=== PATIENT | female | born 1975 | race Caucasian/White ===

== ENCOUNTER 2016-10-14 10:00 | Inpatient (IN) | payer MEDICARE, MEDICAID ==
[~2016-10-14 10:00] MED LIST: ADVAIR 2501 DISK W/D IH; ALBUTEROL SULF8.5 GM IH; ALTACE5 MG PO; CLINDAMYCIN HC300 MG PO; FLEXERIL10 MG PO; FLONASE ALLERG9.9 ML; GLUCOPHAGE1000 M1 PO; IBUPROFEN800 M1 PO; JANUMET 50-1,1 UDTAB PO; LANTUS100 U/ML SC; LORTAB 7.5/5001 EA PO; LYRICA150 MG PO; LYRICA50 MG/CAP PO; MOBIC7.5 M1 PO; NAPROSYN375 MG PO; PHENERGAN12.5 M1 RC; PROMETHAZINE25 MG PO; TYLENOL325 M2 PO; ULTRAM50 MG PO
[2016-10-15 05:56] LABS: EOS % 0.1 % (0-7); HGB-HEMOGLOBIN 10.9 gm/dl (12.0-15.5); IMMATURE GRANULOCYTES ABSOLUTE 0.02 tho/cmm (0-0.03); IMMATURE GRANULOCYTES PERCENT 0.2 % (0-0.3); LYMPH % 7.5 % (20-45); LYMPH ABSOLUTE COUNT 0.9 tho/cmm (0.8-4.5); MCH (MEAN CORPUSCULAR HGB) 30.3 pg (28.0-32.0); MCHC MEAN CORPUSCULAR HGB CONC 34.1 % (32.0-36.0); MCV (MEAN CELL VOLUME) 88.9 fl (82.0-96.0); MEAN PLATELET VOLUME 9.5 cmc (9.4-12.4); MONO % 3.8 % (0-12); MONOCYTE ABSOLUTE COUNT 0.5 tho/cmm (0.0-1.2); NEUTROPHILS % 88.4 % (40-80); PLATELET COUNT 267 tho/cmm (150-450); RED CELL DISTRIBUTION WIDTH 11.7 % (12.4-16.4); WHITE BLOOD COUNT 12.4 tho/cmm (4.0-10.0)
[2016-10-15 06:09] LABS: ANION GAP 12 mmol/L (0-20); BLOOD UREA NITROGEN 7 mg/dl (6-24); CALCIUM 8.6 mg/dl (8.5-10.5); CARBON DIOXIDE-VENOUS 26 mmol/L (22-32); CHLORIDE 107 mmol/l (96-110); CREATININE 0.56 mg/dl (0.50-1.10); GLUCOSE 224 mg/dL (70-110); POTASSIUM 4.1 mmol/L (3.7-5.1); SODIUM 141 mmol/L (135-145); eGFR VALUE FOR BLACK >90 mL/Min
[2016-10-17] MEDS ORDERED: HYDROCODON-ACE1 EA16 PO (11:13)
[2016-10-17] MEDS ORDERED: CYCLOBENZAPRINE5 M1 PO (11:15)
[2016-10-17] MEDS ORDERED: CYCLOBENZAPRINE10 M1 PO (11:20)
== END 2016-10-17 12:35 | DRG 460 ==
LOC: SHSB 10:00 → ORE 12:03 → PACU 14:39 → 5EC 15:45
PROVIDERS: Family Medicine; ADMIT Orthopaedic Surgery Orthopaedic Surgery of the Spine
PROC: 0SG00A0 Fusion of Lumbar Vertebral Joint with Interbody Fusion Device, Anterior Approach, Anterior Column, Open Approach (ICD-10-PCS; principal; 2016-10-14)
DX: M51.16 Intervertebral disc disorders with radiculopathy, lumbar region (principal); E11.9 Type 2 diabetes mellitus without complications; M51.26 Other intervertebral disc displacement, lumbar region; Z87.891 Personal history of nicotine dependence
CPT/HCPCS: A4306; C1713; J0690; J1170; J1815; J2270; J3010; J7040